=== PATIENT | male | born 1945 | race Caucasian/White ===

== ENCOUNTER 2021-10-21 19:27 | Emergency (ER) | payer BC ==
[~2021-10-21] VITALS: Ht 182.9 cm; Wt 84.1 kg
[2021-10-21 20:34] LABS: BASO % 0.3 % (0.0-2.0); EOS # 0.1 K/mm3 (0.0-0.7); EOS % 1.9 % (0.0-4.0); GRAN # 4.8 K/mm3 (1.4-6.5); GRAN % 70.2 % (42.2-75.2); HEMATOCRIT 47.3 % (42.0-52.0); HEMOGLOBIN 16.2 g/dl (13.5-18.0); LYMPH # 1.2 K/mm3 (1.2-3.4); LYMPH % 17.7 % (20.0-51.0); MEAN CELL VOLUME 86 fl (80.0-100.0); MEAN CORPUSCULAR HEMOGLOBIN 30 pg (27-31); MEAN CORPUSCULAR HGB CONC 34 g/dl (33.0-37.0); MEAN PLATELET VOLUME 9.4 fl (7.4-10.4); MONO # 0.7 K/mm3 (0.1-0.6); MONO % 9.8 % (1.7-9.3); PLATELET COUNT 242 K/mm3 (130-400); RED BLOOD COUNT 5.48 M/mm3 (4.20-5.60); REDCELL DISTRIBUTION WIDTH-CV 13.3 % (11.5-14.5)
[2021-10-21] MEDS ORDERED: OSTEO-BI-FLEX 21 TAB PO (20:42)
[2021-10-21] MEDS ORDERED: MULTI-VITAMIN W1 TA1 PO (20:43)
[2021-10-21] MEDS ORDERED: PRILOSEC 20MG20 MG PO (20:43)
[2021-10-21] MEDS ORDERED: TENORMIN 2525 MG/TAB PO (20:43)
[2021-10-21] MEDS ORDERED: ADALAT CC30 MG PO (20:44)
[2021-10-21 20:48] LABS: ALANINE AMINOTRANSFERASE 18 U/L (0-55); ALBUMIN 4.4 gm/dL (3.4-4.8); ALKALINE PHOSPHATASE 62 U/L (40-150); ANION GAP 13 mmol/L (7-16); AST,SGOT 23 U/L (5-34); BILIRUBIN,TOTAL 0.7 mg/dL (0.2-1.2); BLOOD UREA NITROGEN 15 mg/dL (8-26); CALCIUM 9.8 mg/dL (8.4-10.2); CARBON DIOXIDE 25 mmol/L (23-31); CHLORIDE 103 mmol/L (98-107); CREATINE KINASE 41 U/L (30-200); GLUCOSE 136 mg/dL (70-99); LIPASE 16 U/L (8-78); POTASSIUM 3.9 mmol/L (3.5-4.5); SODIUM 141 mmol/L (136-145); TOTAL PROTEIN 8.2 gm/dL (6.2-8.1)
[2021-10-21 21:12] LABS: TROPONIN-I < 0.010 ng/mL (0.00-0.033)
[2021-10-21] MEDS ORDERED: PROTONIX 40MG T40 MG PO (21:50)
[2021-10-21 22:57] VITALS: BP 128/73; PULSE 66; TEMP 98.1
== END 2021-10-21 22:57 | disposition home or self-care (01) ==
LOC: COL.ER 19:27
PROVIDERS: Emergency Medicine
DX: K29.70 Gastritis, unspecified, without bleeding (principal); I10 Essential (primary) hypertension; K21.9 Gastro-esophageal reflux disease without esophagitis; Z90.49 Acquired absence of other specified parts of digestive tract; Z79.899 Other long term (current) drug therapy
CPT/HCPCS: C9113; J1885; J2550; J7030

== ENCOUNTER 2021-10-23 06:09 | Day surgery (SDC) | payer BC ==
[~2021-10-23] VITALS: Ht 182.9 cm; Wt 85.6 kg
[~2021-10-23 06:09] MED LIST: ADALAT CC30 MG PO; MULTI-VITAMIN W1 TA1 PO; OSTEO-BI-FLEX 21 TAB PO; PRILOSEC 20MG20 MG PO; PROTONIX 40MG T40 MG PO; TENORMIN 2525 MG/TAB PO
[2021-10-23 06:56] VITALS: BP 116/70; PULSE 58; TEMP 97.7
[2021-10-23] MEDS ORDERED: PREVAGAN PO (07:04)
[2021-10-23 07:53] VITALS: BP 107/66; PULSE 56; TEMP 97.7
[2021-10-23 08:30] VITALS: BP 111/69; PULSE 53
--- NOTE | 2021-10-23 08:40 | NUR ---
0753 Pt returns from endo procedure via cart and RN assist to [facility]. Pt ambulates from cart to recliner with RN assist. Monitors on and alarms set. Call light within reach. Report received from LYNSEY Ortega. Pt alert and oriented. Pt requests coffee and muffin. Pt denies any pain or nausea. Pt's present in room. 0815 Pt taking food and drink well. No complications noted. 0835 Discharge instructions given to pt and pt's . All questions answered to their satisfaction. Handed to pt are a thank you card and discharge information. 0840 Pt transferred out of the hospital via wheelchair and Uri assist, to private vehicle driven by pt's .
[2021-10-23] MEDS ORDERED: LIDOCAINE HC20 MG/M2 PO (08:49)
[2021-10-23] MEDS ORDERED: ZOFRAN ODT4 MG PO (22:26)
== END 2021-10-23 08:40 | disposition home or self-care (01) ==
LOC: SDCO 06:09
DX: K29.30 Chronic superficial gastritis without bleeding (principal); K22.10 Ulcer of esophagus without bleeding; K21.00 Gastro-esophageal reflux disease with esophagitis, without bleeding; I10 Essential (primary) hypertension; Z79.899 Other long term (current) drug therapy; Z90.89 Acquired absence of other organs; Z90.49 Acquired absence of other specified parts of digestive tract
CPT/HCPCS: J2704; J7120

== ENCOUNTER 2021-10-23 21:05 | Emergency (ER) | payer BC ==
[~2021-10-23] VITALS: Ht 182.9 cm; Wt 84.1 kg
[~2021-10-23 21:05] MED LIST changes: +LIDOCAINE HC20 MG/M2 PO; +PREVAGAN PO
[2021-10-23 21:13] VITALS: TEMP 97.5
[2021-10-23] MEDS ORDERED: ZOFRAN ODT4 MG PO (22:26)
[2021-10-23 22:46] VITALS: BP 127/78; PULSE 76
== END 2021-10-23 22:46 | disposition home or self-care (01) ==
LOC: COL.ER 21:05
DX: R11.2 Nausea with vomiting, unspecified (principal); K21.9 Gastro-esophageal reflux disease without esophagitis; Z79.899 Other long term (current) drug therapy